=== PATIENT | female | born 1990 | race Caucasian/White ===

== ENCOUNTER 2023-08-06 14:33 | Outpatient (CLI) | payer OTHER, SELFPAY ==
--- NOTE | 2023-08-06 14:44 | XRR_ITS ---
PROCEDURE INFORMATION: Exam: XR Right Hip Exam date and time: 08/06/2023 3:18 PM Age: 33 years old Clinical indication: Hip pain; Right hip; Additional info: Right hip pain TECHNIQUE: Imaging protocol: Radiologic exam of the right hip. Views: 1 view hip with pelvis when performed. COMPARISON: No relevant prior studies available. FINDINGS: Bones/joints: Unremarkable. No acute fracture. Soft tissues: Unremarkable. Organs: IUD in place. XR/XR hip RT 2-3V wo/w pel* [id number] IMPRESSION: No acute findings.
== END 2023-08-06 14:34 | disposition home or self-care (01) ==
LOC: RAD 14:38
PROVIDERS: PCP Clinical Nurse Specialist Adult Health; Visit Provider Clinical Nurse Specialist Adult Health
DX: M25.551 Pain in right hip (principal); Z97.5 Presence of (intrauterine) contraceptive device
CPT/HCPCS: 73502

== ENCOUNTER 2024-01-21 08:21 | Observation (INO) | payer OTHER, SELFPAY ==
[2024-01-21] VITALS (13 sets, daily range): BP systolic 88–111; BP diastolic 57–75; PULSE 81–115; RESP 16–18; TEMP 36.2–36.8; O2SAT 92–99; BMI 24.9; BMI 26.6
--- NOTE | 2024-01-21 08:54 | CTR_ITS ---
PROCEDURE INFORMATION: Exam: CT Abdomen And Pelvis With Contrast Exam date and time: 01/21/2024 9:44 AM Age: 33 years old Clinical indication: Abdominal pain; Generalized; Additional info: Rlq pain TECHNIQUE: Imaging protocol: Computed tomography of the abdomen and pelvis with contrast. Radiation optimization: All CT scans at this facility use at least one of these dose optimization techniques: automated exposure control; mA and/or kV adjustment per patient size (includes targeted exams where dose is matched to clinical indication); or iterative reconstruction. Contrast material: OMNIPAQUE 350; Contrast volume: 100 ml; Contrast route: INTRAVENOUS (IV); COMPARISON: CR XR hip RT 2-3V wo/w pel* [id number] 08/06/2023 3:18 PM RADIATION DOSE METRICS: Total DLP (mGy-cm): 448.33 FINDINGS: Liver: Normal. No mass. Gallbladder and biliary ducts: Normal. No calcified stones. No ductal dilation. Pancreas: Normal. No ductal dilation. Spleen: Normal. No splenomegaly. Adrenal glands: Normal. No mass. Kidneys and ureters: Normal. No hydronephrosis. Stomach and bowel: Unremarkable. No obstruction. No mucosal thickening. Appendix: Dilated and inflamed appendix with a thickened and enhancing wall. Moderate periappendiceal stranding. I see no evidence of perforation or drainable abscess. Intraperitoneal space: Unremarkable. No free air. No significant fluid collection. Vasculature: Unremarkable. No abdominal aortic aneurysm. Lymph nodes: Unremarkable. No enlarged lymph nodes. Urinary bladder: Unremarkable as visualized. Reproductive: IUD within the uterus. Bones/joints: Unremarkable. No acute fracture. Soft tissues: Unremarkable. CT/CT abdomen pelvis w con* [id number] IMPRESSION: Acute appendicitis .
--- NOTE | 2024-01-21 09:05 | W.ED.ABDPA2 ---
HPI - Abdominal Pain General: Chief Complaint: Abdominal Pain Stated Complaint: Sharp shooting pain in pelvic area Time Seen by Provider: 01/21/24 08:42 Source: patient Mode of arrival: ambulatory Limitations: no limitations History of Present Illness: 33-year-old female who states been having abdominal pain since last night states pain has been a sharp pain that is worsened. States pain is worse with movement and palpation. No history of abdominal surgery she denies any fever she has had 1 episode of vomiting. Associated Symptoms: Reports nausea and vomiting; Denies chills, diarrhea, dysuria and fever(s) Related Data Home Medications Medication Instructions Recorded Confirmed No Known Home Medications 01/21/24 01/21/24 Allergies Allergy/AdvReac Type Severity Reaction Status Date / Time No Known Allergies Allergy Unverified 08/06/23 13:28 Review of Systems Const: Denies: fever(s), chills, body aches or change in appetite ENMT: Denies: throat pain or dental pain Card: Denies: chest pain Resp: Denies: dyspnea GI: Reports: abdominal pain, nausea and vomiting; Denies: diarrhea : Denies: dysuria Musc: Denies: neck pain or back pain Skin/Breast: Denies: rash Neuro: Denies: headache(s) PFSH ED PFSH: Medical History Tinnitus of both ears Bilateral knee pain Seasonal allergies Right hip pain Surgical History History of hip surgery Labral repair Family History Mother Breast cancer, Onset Age: 50 Other Diverticulitis Hypertension Skin cancer Denies family history of Clotting disorder Anesthesia complication Bleeding disorder Social History Smoking and tobacco/nicotine status: never used tobacco/nicotine Alcohol intake: current Alcohol intake frequency: holidays/special occasions only Substance/Drug Use: never Marital status: Number of children: 2 Physical Exam Const: COMMON NORMALS: no acute distress, patient oriented x3 and healthy appearing HENMT: COMMON NORMALS: normocephalic and atraumatic HEAD & SCALP: normocephalic and atraumatic Eye: COMMON NORMALS: conjunctivae normal CONJUNCTIVA: Yes conjunctivae normal Neck/C-Spine: COMMON NORMALS: full ROM and supple Chest: COMMONS NORMALS: normal inspection of the chest Resp: COMMON NORMALS: normal respiratory effort Cardio: COMMON NORMALS: regular rate, regular rhythm and No murmurs present (Cardio) RATE: regular rate RHYTHM: regular rhythm GI: COMMON NORMALS: Normal to inspection, nondistended, normoactive bowel sounds present, Soft to palpation and no masses PALPATION: Yes Soft to palpation and Yes Tenderness to palpation present (GI) Details: RLQ Extremity: COMMON NORMALS: normal to inspection and full ROM Neuro: COMMON NORMALS: patient oriented x3, moves all extremities and no focal motor deficits Psych: COMMON NORMALS: mental status grossly normal, Normal thought process present and cooperative THOUGHT PROCESS: Normal thought process present Skin: COMMON NORMALS: no rashes or lesions noted and no wounds GENERAL SKIN EXAM: no rashes or lesions noted Course Vital Signs: Vital signs: Vital Signs Temperature 98.1 F 01/21/24 08:29 Pulse Rate 115 H 01/21/24 08:29 Respiratory Rate 18 01/21/24 09:24 Blood Pressure 111/75 01/21/24 08:29 Pulse Oximetry 98 01/21/24 09:24 MDM - Abdominal Pain Medical Decision Making Patient presents here with abdominal pain she is found to have appendicitis I spoke to the surgeon will admit at this time. Medical Records I reviewed the patient's medical records. Lab Data I reviewed the patient's lab results. 01/21/24 08:56 01/21/24 08:56 Labs/Radiology: Radiology Impressions Abdomen/Pelvis CT 01/21/24 08:54 IMPRESSION: Acute appendicitis . ADDENDUM: 01/21/24 1002 THIS REPORT CONTAINS FINDINGS THAT MAY BE CRITICAL TO PATIENT CARE. The findings were verbally communicated via telephone conference with DARLENE ASHLEY at 10:01 AM SAP SENIOR DEVELOPER on 01/21/2024. The findings were acknowledged and understood. Laboratory Results WBC 19.15 10^3/uL (3.29-11.43) H 01/21/24 08:56 RBC 4.34 10^6/uL (3.85-5.65) 01/21/24 08:56 Hgb 13.70 g/dL (11.27-16.99) 01/21/24 08:56 Hct 40.2 % (36-47) 01/21/24 08:56 MCV 92.6 fl (85-98) 01/21/24 08:56 MCH 31.6 pg (27-33) 01/21/24 08:56 MCHC 34.1 g/dL (30-55) 01/21/24 08:56 RDW 12.2 % (12.1-15.1) 01/21/24 08:56 Plt Count 281 10^3/cmm (157-399) 01/21/24 08:56 MPV 9.0 fL (7.4-10.4) 01/21/24 08:56 Neut % (Auto) 90.6 % 01/21/24 08:56 Lymph % (Auto) 5.2 % 01/21/24 08:56 [place] % (Auto) 3.4 % 01/21/24 08:56 Eos % (Auto) 0.0 % 01/21/24 08:56 Baso % (Auto) 0.2 % 01/21/24 08:56 Neut # (Auto) 17.35 10^3/uL (1.8-7.7) H 01/21/24 08:56 Lymph # (Auto) 1.0 10^3/uL (0.8-4.8) 01/21/24 08:56 [place] # (Auto) 0.7 10^3/uL (0.2-0.9) 01/21/24 08:56 Eos # (Auto) 0.0 10^3/uL (0.0-0.8) 01/21/24 08:56 Baso # (Auto) 0.0 10^3/uL (0.0-0.1) 01/21/24 08:56 Nucleated RBC % (auto) 0 % 01/21/24 08:56 Nucleated RBCs # 0.0 /100WBC 01/21/24 08:56 Sodium 134 mmol/L (136-145) L 01/21/24 08:56 Potassium 3.9 mmol/L (3.5-5.1) 01/21/24 08:56 Chloride 99 mmol/L (98-107) 01/21/24 08:56 Carbon Dioxide 24 mmol/L (22-29) 01/21/24 08:56 Anion Gap 14.9 (5-19) 01/21/24 08:56 BUN 6 mg/dL (6-20) 01/21/24 08:56 Creatinine 0.7 mg/dL (0.5-0.9) 01/21/24 08:56 GFR Calculation 95.2 mL/min (90-130) 01/21/24 08:56 Glucose 116 mg/dL (65-115) H 01/21/24 08:56 Calculated Osmolality 277 mOsm/kg (285-295) L 01/21/24 08:56 Calcium 8.9 mg/dL (8.5-10.5) 01/21/24 08:56 Total Bilirubin 1.0 mg/dL (0.15-1.2) 01/21/24 08:56 AST 10 U/L (0-32) 01/21/24 08:56 ALT 8 U/L (0-33) 01/21/24 08:56 Alkaline Phosphatase 86 U/L (35-105) 01/21/24 08:56 Total Protein 7.3 g/dL (6.6-8.7) 01/21/24 08:56 Albumin 4.5 g/dL (3.5-5.2) 01/21/24 08:56 Globulin 2.8 g/dL (1.3-4.6) 01/21/24 08:56 Lipase 14 U/L (13-60) 01/21/24 08:56 HCG, Qual Negative (Negative) 01/21/24 08:56 Urine Color Dark yellow (Yellow) A 01/21/24 09:10 Urine Appearance Cloudy (CLEAR) A 01/21/24 09:10 Urine pH 8.0 (5-7) A 01/21/24 09:10 Ur Specific [place] 1.025 (1.005-1.030) 01/21/24 09:10 Urine Protein 1+ (Negative) A 01/21/24 09:10 Urine Glucose (UA) Negative (Normal) 01/21/24 09:10 Urine Ketones 2+ (Negative) H 01/21/24 09:10 Urine Blood 1+ (Negative) A 01/21/24 09:10 Urine Nitrate Negative (Negative) 01/21/24 09:10 Urine Bilirubin Negative (Negative) 01/21/24 09:10 Urine Urobilinogen 1.0 mg/dL (Negative) 01/21/24 09:10 Ur Leukocyte Esterase Trace (Negative) A 01/21/24 09:10 Urine RBC 51-100 /hpf (0-2) H 01/21/24 09:10 Urine WBC 0-5 /hpf (0-5) 01/21/24 09:10 Ur Squamous Epith Cells 21-50 /hpf (0-5) 01/21/24 09:10 Amorphous Sediment Not Reportable 01/21/24 09:10 Urine Bacteria 4+ /hpf (NONE) H 01/21/24 09:10 Hyaline Casts 1.21 /lpf 01/21/24 09:10 All radiology interpretation(s) finalized by discharge Discharge Plan Discharge Patient Disposition: Admitted As Inpatient Clinical Impression: Acute appendicitis Condition: Stable Coding Level of Care Code ED Plastics Spreading Machine Operator for Yusuf Velez
[2024-01-21 09:17] LABS: Basophils % 0.2 %; Hematocrit 40.2 % (36-47); Lymphocytes % 5.2 %; Mean Corpuscular HGB Conc 34.1 g/dL (30-55); Mean Corpuscular Hemoglobin 31.6 pg (27-33); Mean Corpuscular Volume 92.6 fl (85-98); Monocytes # 0.7 10^3/uL (0.2-0.9); Monocytes % 3.4 %; Neutrophils # 17.35 10^3/uL (1.8-7.7); Neutrophils % 90.6 %; Nucleated Red Blood Cells % 0 %; Platelet Count 281 10^3/cmm (157-399); Red Blood Count 4.34 10^6/uL (3.85-5.65); Red Cell Distribution Width 12.2 % (12.1-15.1); White Blood Count 19.15 10^3/uL (3.29-11.43)
[2024-01-21] MEDS: ondansetron 2 mg/ML SDV 2 mL 4 MG IVP (09:24)
[2024-01-21] MEDS: morphine 4 mg/mL SDV 1 mL IVP (09:24)
[2024-01-21 09:31] LABS: Bilirubin Urine Negative (Negative); Blood Urine 1+ (Negative); Glucose Urine UA Negative (Normal); Ketones Urine 2+ (Negative); Leukocyte Esterase Urine Trace (Negative); Nitrate Urine Negative (Negative); Protein Urine 1+ (Negative); Specific Gravity, Urine 1.025 (1.005-1.030); Urine Appearance Cloudy (CLEAR); Urine Color Dark Yellow (Yellow)
[2024-01-21 09:36] LABS: Alanine Aminotransferase 8 U/L (0-33); Albumin Level 4.5 g/dL (3.5-5.2); Alkaline Phosphatase 86 U/L (35-105); Anion Gap 14.9 (5-19); Aspartate Amino Transferase 10 U/L (0-32); Blood Urea Nitrogen 6 mg/dL (6-20); Calcium 8.9 mg/dL (8.5-10.5); Carbon Dioxide 24 mmol/L (22-29); Chloride 99 mmol/L (98-107); Creatinine Clr Calc Pharmacy 104.7065; Globulin 2.8 g/dL (1.3-4.6); Glomerular Filtration Rate 95.2 mL/min (90-130); Glucose 116 mg/dL (65-115); Lipase 14 U/L (13-60); Osmolality Calculated 277 mOsm/kg (285-295); Potassium 3.9 mmol/L (3.5-5.1); Sodium 134 mmol/L (136-145); Total Protein 7.3 g/dL (6.6-8.7)
[2024-01-21 09:36] LABS: Add Urine Microscopic? YES; Bacteria Urine 4+ /hpf; Hyaline Casts Urine 1.21 /lpf; RBC Urine 51-100 /hpf (0-2); Squamous Epithelial Cell Urine 21-50 /hpf (0-5); WBC Urine 0-5 /hpf (0-5)
[2024-01-21 09:39] LABS: HCG, Serum Qual Negative (Negative)
[2024-01-21] MEDS: iohexol 350 mg/mL 500 mL Btl (per mL) IV (09:45)
[2024-01-21 09:56] LABS: Add Urine Culture? No
[2024-01-21] MEDS: piperacillin-tazobactam 3.375 GM in sodium chloride 0.9% (plus) 50 ML IV (10:18)
[2024-01-21] MEDS: ketorolac 30 mg/mL INJ 15 MG IVP (10:18)
--- NOTE | 2024-01-21 11:22 | P.HP_ITS ---
Providers/Chief Complaint 2 Admitting Physician: Jorge Ty MD Primary Care Provider: Nik Little Chief Complaint: Sharp shooting pain in pelvic area History of Present Illness VESNA MORIN is a 33 year old female who presents to the hospital with 12 hours of abdominal pain in the right lower quadrant. Laboratory workup in the ED showed evidence of elevated white count and a CT scan show evidence of acute appendicitis. Review of Systems 2 General: Reports: 10 or more systems reviewed and unremarkable except in HPI and below Medications/Allergies Home Medications Medication Instructions Recorded Confirmed Last Taken Type No Known Home Medications 01/21/24 01/21/24 Unknown History Allergies Allergy/AdvReac Type Severity Reaction Status Date / Time No Known Allergies Allergy Unverified 08/06/23 13:28 PFSH Acute 2 PFSH: Medical History Tinnitus of both ears Bilateral knee pain Seasonal allergies Right hip pain Surgical History History of hip surgery Labral repair Family History Mother Breast cancer, Onset Age: 50 Other Diverticulitis Hypertension Skin cancer Denies family history of Clotting disorder Anesthesia complication Bleeding disorder Social History Smoking and tobacco/nicotine status: never used tobacco/nicotine Alcohol intake: current Alcohol intake frequency: holidays/special occasions only Substance/Drug Use: never Marital status: Number of children: 2 Vitals/I&O/Wt Last Vital Signs Temp 98.1 F 01/21/24 08:29 Pulse 92 01/21/24 10:45 Resp 18 01/21/24 09:24 BP 99/70 01/21/24 10:45 Pulse Ox 97 01/21/24 10:45 01/20/24 01/21/24 01/21/24 22:59 06:59 14:59 Intake Total 50 / 50 Balance 50 / 50 Weight last 48 hrs Weight 145 lb Physical Exam 2 Narrative: General : Patient is well developed , no acute distress, oriented x3 Head : Normal cephalic, a-traumatic. Nose : Mucous membranes are without erythema. Lungs : Equal chest rise bilaterally, no use of accessory muscles, trachea is midline. CV : Rate and rhythm are normal. Abdomen : Soft, there is tenderness in the right lower quadrant no peritonitis Extremities : No edema. Upper extremities are normal bilaterally. Back : non-tender to palpation, no CVA tenderness. Data 01/21/24 08:56 01/21/24 08:56 A&P Assessment and plan (1) Acute appendicitis: Plan After a complete history, physical examination and review of all available clinical data the following is my assessment. Patient has acute appendicitis, laparoscopic appendectomy is indicated, I have discussed all recent benefits of the procedure including the risks of bleeding, infection, need for additional procedures, intra-abdominal abscess requiring drainage, need for colectomy, injury to surrounding structures, bowel perforation, hernia. He was explained to patient that surgery will chance of converting to an open procedure. She shows understanding and agrees. -IV antibiotics -IV fluids -On-call to the OR for laparoscopic appendectomy Attestations 2 Medical Necessity Statement*: per medical team Coding Level of Care Code Acute Code for [facility] Diagnoses Acute appendicitis K35.80
--- NOTE | 2024-01-21 13:36 | PC.NURSE ---
surgery Pt taken down to preop for surgery in a wheelchair.
--- NOTE | 2024-01-21 14:03 | P.ANESASSM_ITS ---
Pre-Anesthetic Assessment Height/Weight: Height 1.63 m Weight 70.534 kg Temp Pulse Resp BP Pulse Ox O2 Del Method 98.2 F 93 16 105/61 94 Room Air 01/21/24 11:50 01/21/24 11:50 01/21/24 11:50 01/21/24 11:50 01/21/24 11:50 01/21/24 13:43 Operation Date: 01/21/24 15:10 Proposed Procedures p Laparoscopic Appendectomy(Not Applicable) - Jorge Ty MD Familial anesthetic complications: None Was Beta Brit taken within 24 hours: N/A Was Clonidine taken within 24 hours: N/A Last intake: Intake Last Liquid Date 01/21/24 Last Liquid Time 08:30 Last Solid Date 01/20/24 Last Solid Time 12:00 Social No alcohol and No tobacco Exam alert, oriented x 3, clear to auscultation bilaterally and regular rate & rhythm Airway Mallampati: Class I Dentition: full Anesthetic Plan ASA status: 1E Anesthesia: General Risk of > 500 ml blood loss (7ml/kg in children): No Medications/Allergies Home Medications Medication Instructions Recorded Confirmed Last Taken Type No Known Home Medications 01/21/24 01/21/24 Unknown History Allergies Allergy/AdvReac Type Severity Reaction Status Date / Time No Known Allergies Allergy Unverified 08/06/23 13:28 [facility] Anesthesia Medical History Tinnitus of both ears Bilateral knee pain Seasonal allergies Right hip pain Surgical History History of hip surgery Labral repair Family History Mother Breast cancer, Onset Age: 50 Other Diverticulitis Hypertension Skin cancer Denies family history of Clotting disorder Anesthesia complication Bleeding disorder Social History Smoking and tobacco/nicotine status: never used tobacco/nicotine Alcohol intake: current Alcohol intake frequency: holidays/special occasions only Substance/Drug Use: never Marital status: Number of children: 2 Data Anesthesia 01/21/24 08:56 01/21/24 08:56 Short CBC 01/21/24 Range/Units 08:56 WBC 19.15 H (3.29-11.43) 10^3/uL Hgb 13.70 (11.27-16.99) g/dL Hct 40.2 (36-47) % MCV 92.6 (85-98) fl Plt Count 281 (157-399) 10^3/cmm Neut % (Auto) 90.6 % Neut # (Auto) 17.35 H (1.8-7.7) 10^3/uL BMP 01/21/24 08:56 Sodium 134 L Potassium 3.9 Chloride 99 Carbon Dioxide 24 BUN 6 Creatinine 0.7 Glucose 116 H Calcium 8.9 Liver Function 01/21/24 Range/Units 08:56 Total Bilirubin 1.0 (0.15-1.2) mg/dL AST 10 (0-32) U/L ALT 8 (0-33) U/L Alkaline Phosphatase 86 (35-105) U/L Albumin 4.5 (3.5-5.2) g/dL Urine 01/21/24 Range/Units 09:10 Urine Color Dark yellow A (Yellow) Urine Appearance Cloudy A (CLEAR) Urine pH 8.0 A (5-7) Ur Specific [place] 1.025 (1.005-1.030) Urine Protein 1+ A (Negative) Urine Glucose (UA) Negative (Normal) Urine Ketones 2+ H (Negative) Urine Nitrate Negative (Negative) Urine Bilirubin Negative (Negative) Ur Leukocyte Esterase Trace A (Negative) Urine RBC 51-100 H (0-2) /hpf Urine WBC 0-5 (0-5) /hpf Cardiac Studies: 2 No Data to Display
[2024-01-21] MEDS: sodium chloride 0.9% 1,000 ML 30 ML IV (14:05)
[2024-01-21] MEDS: acetaminophen 325 mg Tablet 650 MG PO (14:08)
[2024-01-21] MEDS: ceFAZolin 2,000 mg SDV 2000 MG IVP (15:30)
[2024-01-21] MEDS: lidocaine-epi 1% 20 mL INJ 10 ML INJECTION (15:53)
[2024-01-21] MEDS: BUPivacaine 0.25% INJ 10 mL INJECTION (15:53)
--- NOTE | 2024-01-21 16:29 | P.OP_ITS ---
Operative Report Date of procedure: January 21, 2024 Pre-op diagnosis: Acute appendicitis Post-op diagnosis: Same Post-op findings: Inflamed and dilated appendix, no perforation Procedure done: Laparoscopic appendectomy Implants: None Specimens removed/disposition: Appendix Surgeon: Jorge Ty MD Residential Electrician: [facility] Estimated blood loss: 5 Complications: none apparent Brief History: 33-year-old female with right abdominal pain over the last 12 hours, lower quadrant waken of 19 and a CAT scan showed evidence of acute appendicitis. After discussion of risk benefits documented my preop note with side to proceed to the OR for laparoscopic appendectomy. Procedure: Patient was brought into the OR, she was placed in a supine position. General anesthesia was given. The abdomen was prepped and draped in the usual sterile fashion and a timeout was conducted. The abdomen was accessed via infraumbilical incision using an open technique, a 12 mm Trocar Was Placed and Fixed to the Fascia with #0 Vicryl. Initial Pneumoperitoneum Was Obtained and No Evidence of Visceral Injury during Entry Was Noted. Additional 5 Mm Trocars Were Placed under Direct Visualization the Suprapubic and left lower quadrant position. The patient was placed in a steep Trendelenburg with the left side down, the pannus was identified in the right lower quadrant appeared to be adhered to the anterior abdominal wall and to the pelvic sidewall, with careful blunt dissection I was able to liberate the appendix, I then took the mesoappendix down to the level of the base using LigaSure, the base was healthy, the appendix was then transected with a 45 mm blue load Endo LALITA stapler. Staple line appeared to be healthy and hemostatic, the specimen was retrieved with an Endo Catch bag. Umbilical trocar site. I then proceeded to closed umbilical trocar site with 0 Vicryl in a Memo-Tashi suture passer under direct visualization. The suprapubic trocar was removed under direct visualization and the left lower quadrant trocar was used to evacuate the pneumoperitoneum and subsequently removed. All wounds were closed with #4-0 Vicryl for the skin and Dermabond was applied, before wound closure local anesthesia was infiltrated. At the end of the procedure all counts were correct, the patient tolerated well the procedure was transferred to the PACU in stable condition.
--- NOTE | 2024-01-21 17:15 | ANE.PACU2 ---
Inpatient post-anesthesia follow up: Airway intact: Yes Vital signs: Temperature 98.0 F Pulse Rate 82 Respiratory Rate 17 Blood Pressure 96/68 Pulse Oximetry 99 Oxygen Delivery Me thod Room Air Oxygen Flow Rate Fraction of Inspir ed Oxygen Hydration adequate: Yes Nausea and vomiting: No Pain level: 1 Mental status: Baseline
== END 2024-01-21 18:42 | disposition home or self-care (01) ==
LOC: ER 10:29 → MEDSURG 10:44
PROVIDERS: Admitting Provider Surgery; Emergency Provider Emergency Medicine; PCP Clinical Nurse Specialist Adult Health; Visit Provider Surgery
PROC: 0DTJ4ZZ Resection of Appendix, Percutaneous Endoscopic Approach (ICD-10-PCS; CPT 44970; principal; 2024-01-21 15:00)
DX: K35.80 Unspecified acute appendicitis (principal)
CPT/HCPCS: 44970; 36415; 74177; 80053; 81001; 83690; 84703; 85025; 88304; 96365; 96375; 99285; G0378; J0330; J0690; J1100; J1885; J2250; J2270; J2405; J2543; J2704; J3010; J3490; J7030